=== PATIENT | female | born 1980 | race Native Hawaiian/Other Pacific Islander ===

== ENCOUNTER 2016-07-05 02:59 | Emergency (ER) | payer OTHER ==
[~2016-07-05] VITALS: Ht 175.3 cm; Wt 79.4 kg
[2016-07-05 05:22] VITALS: BP 144/82; TEMP 97.6
== END 2016-07-05 05:30 | disposition home or self-care (01) ==
LOC: ED 02:59
DX: J06.9 Acute upper respiratory infection, unspecified (principal); J30.1 Allergic rhinitis due to pollen
CPT/HCPCS: 81000; 87804; 99283